=== PATIENT | male | born 1970 | race Caucasian/White ===

== ENCOUNTER 2020-09-12 12:23 | Emergency (ER) | payer MEDICAID ==
[~2020-09-12] VITALS: Ht 190.5 cm; Wt 75.0 kg
[~2020-09-12 12:23] MED LIST: HYDR-3686 PO; OXYC-658 PO; PHEN32.46 PO; PRED20TA PO; TRIA15CR3 TOP
[2020-09-12 12:40] VITALS: BP 142/59
[2020-09-12] MEDS ORDERED: GABA300C PO (12:47)
[2020-09-12] MEDS ORDERED: ONDA4TAB6 PO (12:47)
== END 2020-09-12 12:53 | disposition home or self-care (01) ==
LOC: ER 12:23
DX: F19.10 Other psychoactive substance abuse, uncomplicated (principal); F10.10 Alcohol abuse, uncomplicated; F12.90 Cannabis use, unspecified, uncomplicated; F15.90 Other stimulant use, unspecified, uncomplicated; F11.90 Opioid use, unspecified, uncomplicated; Z87.01 Personal history of pneumonia (recurrent); Z79.899 Other long term (current) drug therapy; Y90.9 Presence of alcohol in blood, level not specified
CPT/HCPCS: 99283

== ENCOUNTER 2020-10-14 08:51 | Emergency (ER) | payer MEDICAID ==
[~2020-10-14] VITALS: Ht 188 cm; Wt 77.3 kg
[~2020-10-14 08:51] MED LIST changes: +GABA300C PO; +ONDA4TAB6 PO
[2020-10-14 09:12] VITALS: BP 130/86
[2020-10-14] MEDS ORDERED: colchicine 0.6mg tablet PO ONE (09:45)
[2020-10-14] MEDS ORDERED: indomethacin 25mg capsule PO SCH ×2 (09:55→12:30)
[2020-10-14] MEDS ORDERED: INDO50CA96 PO (09:56)
== END 2020-10-14 10:08 | disposition home or self-care (01) ==
LOC: ER 08:52
DX: M10.9 Gout, unspecified (principal); M79.672 Pain in left foot; F12.90 Cannabis use, unspecified, uncomplicated; F15.90 Other stimulant use, unspecified, uncomplicated; F11.90 Opioid use, unspecified, uncomplicated; Z87.01 Personal history of pneumonia (recurrent); Z72.89 Other problems related to lifestyle; Z79.899 Other long term (current) drug therapy
CPT/HCPCS: 73630; 99283

== ENCOUNTER 2021-06-26 15:02 | Emergency (ER) | payer MEDICAID ==
[~2021-06-26] VITALS: Ht 188 cm; Wt 86.4 kg
[~2021-06-26 15:02] MED LIST changes: +INDO50CA96 PO
[2021-06-26 15:13] VITALS: BP 131/98
== END 2021-06-26 15:46 | disposition home or self-care (01) ==
LOC: ER 15:03
DX: F10.20 Alcohol dependence, uncomplicated (principal); F15.10 Other stimulant abuse, uncomplicated; F12.90 Cannabis use, unspecified, uncomplicated; F11.90 Opioid use, unspecified, uncomplicated; Z72.89 Other problems related to lifestyle; Z79.899 Other long term (current) drug therapy; Y90.9 Presence of alcohol in blood, level not specified
CPT/HCPCS: 93005; 99283

== ENCOUNTER 2023-08-22 09:50 | Emergency (ER) | payer MEDICAID ==
[~2023-08-22] VITALS: Ht 190.5 cm; Wt 97.5 kg
[2023-08-22 10:49] LABS: BASOPHILS # (AUTO) 0.2 X10'3 (0-0.2); BASOPHILS % (AUTO) 1.3 % (0-1); EOSINOPHILS % (AUTO) 0.2 % (0-6); HEMATOCRIT 46.3 % (42.0-52.0); HEMOGLOBIN 15.7 g/dl (14.0-17.9); LYMPHOCYTES # (AUTO) 1.4 X10'3 (1.1-4.8); LYMPHOCYTES % (AUTO) 9.6 % (21-51); MEAN CORPUSCULAR HEMOGLOBIN 31.5 PG (27.0-31.0); MEAN CORPUSCULAR HGB CONC 33.8 g/dL (33.0-36.5); MEAN CORPUSCULAR VOLUME 93.1 FL (78-98); MEAN PLATELET VOLUME 7.5 FL (7.4-10.4); MONOCYTES # (AUTO) 0.9 X10'3 (0-0.9); MONOCYTES % (AUTO) 6.1 % (2-12); NEUTROPHILS % (AUTO) 82.8 % (42-75); PLATELET COUNT 263 X10'3 (140-440); RED BLOOD COUNT 4.97 X10'6 (4.70-6.10); RED CELL DISTRIBUTION WIDTH 12.3 % (11.5-14.5); WHITE BLOOD COUNT 14.4 X10'3 (4.5-11.0)
[2023-08-22 11:07] LABS: ALANINE AMINOTRANSFERASE 35 U/L (12-78); ALBUMIN 3.8 G/DL (3.4-5.0); ALBUMIN/GLOBULIN RATIO 0.8 (1.1-1.5); ALKALINE PHOSPHATASE 75 IU/L (46-116); ANION GAP 6 (8-16); ASPARTATE AMINO TRANSFERASE 27 U/L (10-37); BILIRUBIN,TOTAL 1.3 MG/DL (0.1-1.0); BLOOD UREA NITROGEN 10 MG/DL (7-18); BUN/CREATININE RATIO 10.3 (10.0-20.0); CALCIUM 9.2 MG/DL (8.5-10.1); CHLORIDE 96 MMOL/L (99-107); CREATININE 0.97 MG/DL (0.60-1.10); GLUCOSE 104 MG/DL (70-104); SODIUM 130 MMOL/L (135-145); TOTAL CARBON DIOXIDE 28.4 MMOL/L (24-32); TOTAL PROTEIN 8.5 G/DL (6.4-8.2); eCRCL 103 ML/MIN; eGFR 80 ML/MIN
[2023-08-22 11:16] LABS: PRO BRAIN NATRIURETIC PEPTIDE 88 PG/ML (0-125)
[2023-08-22 12:43] LABS: PROTHROMBIN TIME 9.9 SECONDS (9.0-12.0)
[2023-08-22 12:48] LABS: INR 0.9 INR
[2023-08-22] MEDS ORDERED: LIDOcaine Viscous 15ml cup MM PRN (14:55)
[2023-08-22] MEDS ORDERED: mag hydrox/Alum hydrox/simeth 30ml oral suspension PO ONE (14:55)
[2023-08-22 14:58] VITALS: BP 136/94; PULSE 83; RESP 15; TEMP 97.7; O2SAT 97
== END 2023-08-22 15:39 | disposition left against medical advice (07) ==
LOC: ER 09:51
DX: K20.90 Esophagitis, unspecified without bleeding (principal); Z20.822 Contact with and (suspected) exposure to COVID-19; F12.90 Cannabis use, unspecified, uncomplicated; F15.90 Other stimulant use, unspecified, uncomplicated; F11.90 Opioid use, unspecified, uncomplicated; Z72.89 Other problems related to lifestyle; Z79.899 Other long term (current) drug therapy
CPT/HCPCS: 36415; 71045; 80053; 83880; 84484; 85025; 85610; 87811; 93005; 99285